=== PATIENT | male | born 1965 | race Caucasian/White ===

== ENCOUNTER 2018-07-18 15:12 | Emergency (ER) | payer OTHER ==
[~2018-07-18] VITALS: Ht 177.8 cm; Wt 99.8 kg
--- NOTE | 2018-07-18 15:26 | PHYS DOC ---
Adult General Chief Complaint Chief Complaint: SYNCOPE HPI HPI Patient is a 52 year old male with no significant medical history who presents today complaining of a syncope episode as well as nausea vomiting and diarrhea. Patient states prior to coming to the ED he was at the [employer] for the last three hours. He states he got clammy, he states he felt dizzy then passed out in his seat. He also states for the last 1 week he has had intermittent episodes of nausea vomiting and diarrhea. He is from [place]. They drove from [place] to [place] but stopped at a couple places and spent the night. Patient denies any chest pain or shortness of breath. He states he feels better since he got to the ED. Review of Systems Review of Systems Constitutional: Denies fever or chills [] Eyes: Denies change in visual acuity, redness, or eye pain [] HENT: Denies nasal congestion or sore throat [] Respiratory: Denies cough or shortness of breath [] Cardiovascular: No additional information not addressed in HPI [] GI: Reports nausea vomiting and diarrhea, denies abdominal pain, bloody stools : Denies dysuria or hematuria [] Musculoskeletal: Denies back pain or joint pain [] Integument: Denies rash or skin lesions [] Neurologic: Reports syncope episode, dizziness, denies headache, focal weakness or sensory changes [] All other systems were reviewed and found to be within normal limits, except as documented in this note. Current Medications Current Medications Current Medications Medications (Trade) Dose Ordered Sig/Enrrique Start Time Stop Time Status Last Admin Dose Admin Dicyclomine HCl (Bentyl) 20 mg 1X ONCE 07/18/18 15:30 07/18/18 15:31 DC 07/18/18 15:50 20 MG Info (CONTRAST GIVEN -- Rx MONITORING) 1 each PRN DAILY PRN 07/18/18 16:15 07/20/18 16:14 Iohexol (Omnipaque 300 Mg/ml) 75 ml 1X ONCE 07/18/18 16:15 07/18/18 16:16 DC 07/18/18 16:15 75 ML Ondansetron HCl (Zofran) 4 mg 1X ONCE 07/18/18 15:30 07/18/18 15:31 DC 07/18/18 15:30 4 MG Pantoprazole Sodium (PROTONIX VIAL for IV PUSH) 40 mg 1X ONCE 07/18/18 15:30 07/18/18 15:31 DC 07/18/18 15:47 40 MG Sodium Chloride 1,000 ml @ 1,000 mls/hr 1X ONCE 07/18/18 15:30 07/18/18 16:29 DC 07/18/18 15:46 1,000 MLS/HR Allergies Allergies Allergies Coded Allergies Type Severity Reaction Last Updated Verified No Known Drug Allergies 07/18/18 No Physical Exam Physical Exam Constitutional: Well developed, well nourished, no acute distress, non-toxic appearance. [] HENT: Normocephalic, atraumatic, bilateral external ears normal, oropharynx moist, no oral exudates, nose normal. [] Eyes: PERRLA, EOMI, conjunctiva normal, no discharge. [] Neck: Normal range of motion, no tenderness, supple, no stridor. [] Cardiovascular:Heart rate regular rhythm, no murmur [] Lungs & Thorax: Bilateral breath sounds clear to auscultation [] Abdomen: Bowel sounds normal, soft, no tenderness, no masses, no pulsatile masses. [] Skin: Warm, dry, no erythema, no rash. [] Back: No tenderness, no CVA tenderness. [] Extremities: No tenderness, no cyanosis, no clubbing, ROM intact, no edema. [] Neurologic: Alert and oriented X 3, normal motor function, normal sensory function, no focal deficits noted. Cranial nerves II through XII intact Psychologic: Affect normal, judgement normal, mood normal. [] Current Patient Data Vital Signs Vital Signs Date Time Temp Pulse Resp B/P (MAP) Pulse Ox O2 Delivery O2 Flow Rate FiO2 07/18/18 15:13 98.2 80 16 141/77 (98) 97 Room Air 98.2 Lab Values Laboratory Tests Test 07/18/18 15:20 White Blood Count 12.0 x10^3/uL (4.0-11.0) H Red Blood Count 5.01 x10^6/uL (4.30-5.70) Hemoglobin 15.5 g/dL (13.0-17.5) Hematocrit 45.0 % (39.0-53.0) Mean Corpuscular Volume 90 fL (79-100) Mean Corpuscular Hemoglobin 31 pg (25-35) Mean Corpuscular Hemoglobin Concent 35 g/dL (31-37) Red Cell Distribution Width 13.1 % (11.5-14.5) Platelet Count 203 x10^3/uL (140-400) Neutrophils (%) (Auto) 79 % (31-73) H Lymphocytes (%) (Auto) 13 % (24-48) L Monocytes (%) (Auto) 7 % (0-9) Eosinophils (%) (Auto) 1 % (0-3) Basophils (%) (Auto) 1 % (0-3) Neutrophils # (Auto) 9.4 x10^3uL (1.8-7.7) H Lymphocytes # (Auto) 1.5 x10^3/uL (1.0-4.8) Monocytes # (Auto) 0.8 x10^3/uL (0.0-1.1) Eosinophils # (Auto) 0.1 x10^3/uL (0.0-0.7) Basophils # (Auto) 0.1 x10^3/uL (0.0-0.2) D-Dimer (Abby) 1.14 ug/mlFEU (0.00-0.50) H Sodium Level 137 mmol/L (136-145) Potassium Level 4.0 mmol/L (3.5-5.1) Chloride Level 101 mmol/L (98-107) Carbon Dioxide Level 27 mmol/L (21-32) Anion Gap 9 (6-14) Blood Urea Nitrogen 15 mg/dL (8-26) Creatinine 1.0 mg/dL (0.7-1.3) Estimated GFR (Cockcroft-Gault) 77.9 BUN/Creatinine Ratio 15 (6-20) Glucose Level 120 mg/dL (70-99) H Calcium Level 9.1 mg/dL (8.5-10.1) Magnesium Level 1.7 mg/dL (1.8-2.4) L Total Bilirubin 0.5 mg/dL (0.2-1.0) Aspartate Amino Transferase (AST) 29 U/L (15-37) Alanine Aminotransferase (ALT) 59 U/L (16-63) Alkaline Phosphatase 97 U/L (46-116) Creatine Kinase 73 U/L (39-308) Troponin I Quantitative < 0.017 ng/mL (0.000-0.055) WG-Gao-A-Type Natriuretic Peptide 13 pg/mL (0-124) Total Protein 7.8 g/dL (6.4-8.2) Albumin 3.8 g/dL (3.4-5.0) Albumin/Globulin Ratio 1.0 (1.0-1.7) Lipase 113 U/L (73-393) Ethyl Alcohol Level < 10 mg/dL (0-10) Laboratory Tests 07/18/18 15:20 Laboratory Tests 07/18/18 15:20 EKG EKG :[address] Scott sinus rhythm heart rate 75 no STEMI[] Radiology/Procedures Radiology/Procedures []PATIENT: ANA BUNDYACCOUNT: [id number]#: [id number] : 1965 LOCATION: ER AGE: 52 SEX: M EXAM STATUS: PRE ER ORD. PHYSICIAN: ABILIO BOWEN APRN REASON: syncope PROCEDURE: PORTABLE CHEST 1V Chest AP portable 07/18/2018. Reason for exam: Syncope. There are no available comparison studies. No acute infiltrate is seen. There may be a small left-sided effusion. There is evidence of previous granulomatous infection in the chest. Heart size is normal. IMPRESSION: Small left-sided effusion. Electronically signed by: Little Ross Jr., MD (07/18/2018 3:42 PM) [facility] [place] DICTATED and SIGNED BY: LITTLE ROSS Jr, MD DATE: 07/18/18 1542 PROCEDURE: CT ABD PELV W/ IV CONTRST ONLY CTA chest with contrast, CT abdomen and pelvis with contrast 07/18/2018 CLINICAL INDICATION: Nausea and diarrhea, elevated d-dimer, syncopal episode. COMPARISON: None. TECHNIQUE: Multiple CTA images of the chest and portal venous CT images of the abdomen and pelvis were obtained following the intravenous administration of 75 mL Omnipaque 300. MIPS were obtained of the chest. *One or more of the following individualized dose reduction techniques were utilized for this examination: 1. Automated exposure control. 2. Adjustment of the mA and/or kV according to patient size. 3. Use of iterative reconstruction technique. FINDINGS: CTA CHEST: There is eccentric low-attenuation in the main pulmonary artery extending into the left pulmonary artery which is felt to represent motion artifact. Otherwise, no central or major segmental pulmonary arterial filling defect. The thoracic aorta is normal in caliber. Heart size is normal without significant pericardial effusion. No axillary lymphadenopathy. Mild mediastinal and bilateral hilar lymphadenopathy. Compensator lower right paratracheal adenopathy measures 1.1 cm short axis series 3/image 50. Compensator right hilar lymphadenopathy measures 1.3 cm short axis series 3/image 64. The central airways are patent. There is a trace left pleural effusion. There is a 0.4 cm noncalcified pulmonary nodule in the anterior right middle lobe series 3/image 86, 0.4 cm noncalcified pulmonary nodule in the lateral right upper lobe series 3/image 37, 0.4 cm noncalcified pulmonary nodule in the anterior right upper lobe series 3/image 50, 0.3 cm noncalcified pulmonary nodule in the lateral left upper lobe series 3/image 67. There are few scattered calcified granulomas in the left lung. Minimal probable left basilar atelectasis. Abdomen and pelvis: Liver, spleen, gallbladder, adrenal glands, pancreas and kidneys unremarkable. No hydronephrosis. Abdominal aorta normal in caliber. Major portal veins are patent. A few mildly prominent gastrohepatic and periportal lymph nodes without pathologic enlargement by CT size criteria. Small and large bowel loops are normal in caliber without obstruction. Appendix is not visualized and may be absent. Mildly distended unopacified urinary bladder, prostate, and seminal vesicles are unremarkable. No iliac or inguinal lymphadenopathy. No abdominal free fluid. No pneumoperitoneum. There are no destructive osseous lesions. CTA CHEST: 1. No CT evidence of pulmonary embolism. 2. Several subcentimeter bilateral noncalcified pulmonary nodules, indeterminate and pulmonary metastatic disease or primary lung malignancy not excluded. 3. Mild bilateral hilar lymphadenopathy, indeterminate between reactive and roque metastatic disease. Electronically signed by: Yisel Beaulieu MD (07/18/2018 5:13 PM) [facility] DICTATED and SIGNED BY: YISEL BEAULIEU MD DATE: 07/18/181656 Course & Med Decision Making Course & Med Decision Making Pertinent Labs and Imaging studies reviewed. (See chart for details) This is a 52-year-old male patient presenting to the ED today with a syncope episode as well as nausea vomiting and diarrhea. Patient was at the [employer] when he got dizzy and passed out. Prior to this he was feeling clammy. He also states he has had nausea vomiting and diarrhea with no abdominal pain for one week intermittently. Vitals on arrival to the ED temperature 98.0 heart rate 80 respirations 16 on room air blood pressure 141/77 O2 sats 97% on room air. CBC with a WBC of 12.0, CMP with no acute findings. Troponin is normal, CK is normal, EKG is normal, CT of the head is negative for any acute findings, chest x-ray was noted for small left pleural effusion. D-dimer was 1.14, CTA chest was obtained as well as CT of the abdomen for nausea vomiting and diarrhea for one week. CTA CHEST: 1. No CT evidence of pulmonary embolism. 2. Several subcentimeter bilateral noncalcified pulmonary nodules, indeterminate and pulmonary metastatic disease or primary lung malignancy not excluded. 3. Mild bilateral hilar lymphadenopathy, indeterminate between reactive and roque metastatic disease. Above results were discussed with patient and family. Patient comes from [place], I requested they contact their primary care doctor and start following up with the CT findings. Patient is feeling better in the ED. Was discharged to home. Dragon Disclaimer Dragon Disclaimer This electronic medical record was generated, in whole or in part, using a voice recognition dictation system. Departure Departure Impression: Primary Impression: Syncope Additional Impression: Vomiting and diarrhea Disposition: 01 HOME, SELF-CARE Condition: STABLE Patient Instructions: Diarrhea, Nausea and Vomiting, [id number], Syncope Additional Instructions: You were evaluated in the emergency room for syncope, diarrhea and vomiting. As discussed please contact your primary care doctor as soon as you get home and have him or her follow-up with the CT results. Please come back to the emergency room at any point symptoms worsen. Try to push fluids and hydrate yourself. Scripts Ondansetron (ZOFRAN ODT) 4 Mg Tab.rapdis 1 TAB SL Q8HRS, #15 TAB Prov: ABILIO BOWEN APRN 07/18/18 Problem Qualifiers Primary Impression: Syncope Syncope type: unspecified Qualified Codes: R55 - Syncope and collapse REMIABILIO MCCORMACK ROBERT Jul 18, 2018 15:26
[2018-07-18] MEDS ORDERED: ONDANSETRON PF 4 MG/2 ML VIAL. IV ONE (15:30)
[2018-07-18] MEDS ORDERED: PANTOPRAZOLE IV PUSH 40 MG VIAL. IVP ONE (15:30)
[2018-07-18] MEDS ORDERED: IV NORMAL SALINE 1000ML BAG 1,000 ML IV ONE (15:30)
[2018-07-18] MEDS ORDERED: DICYCLOMINE HCL 10 MG CAPSULE PO ONE (15:30)
[2018-07-18 15:38] LABS: BASO # 0.1 x10^3/uL (0.0-0.2); BASO % 1 % (0-3); EOS # 0.1 x10^3/uL (0.0-0.7); EOS % 1 % (0-3); HEMOGLOBIN 15.5 g/dL (13.0-17.5); LYMPH # 1.5 x10^3/uL (1.0-4.8); LYMPH % 13 % (24-48); MEAN CORPUSCULAR HEMOGLOBIN 31 pg (25-35); MEAN CORPUSCULAR HGB CONC 35 g/dL (31-37); MEAN CORPUSCULAR VOLUME 90 fL (79-100); MONO # 0.8 x10^3/uL (0.0-1.1); MONO % 7 % (0-9); NEUT # 9.4 x10^3uL (1.8-7.7); NEUT % 79 % (31-73); PLATELET COUNT 203 x10^3/uL (140-400); RED BLOOD COUNT 5.01 x10^6/uL (4.30-5.70); RED CELL DISTRIBUTION WIDTH 13.1 % (11.5-14.5)
--- NOTE | 2018-07-18 15:46 | RAD ---
Chest AP portable 07/18/2018. Reason for exam: Syncope. There are no available comparison studies. No acute infiltrate is seen. There may be a small left-sided effusion. There is evidence of previous granulomatous infection in the chest. Heart size is normal. IMPRESSION: Small left-sided effusion. Electronically signed by: Anthony Ross Jr., MD (07/18/2018 3:42 PM) [facility] [place]
[2018-07-18 15:47] LABS: CALCIUM 9.1 mg/dL (8.5-10.1); GFR 77.9
--- NOTE | 2018-07-18 15:48 | RAD ---
CT HEAD WO CONTRAST dated 07/18/2018 3:20 PM Indication:SYNCOPAL EPISODE, NO PRIORS OR HX Comparison: No comparison is available. Technique: Noncontrast images were performed. One or more of the following individualized dose reduction techniques were utilized for this examination: 1. Automated exposure control 2. Adjustment of the mA and/or kV according to patient size 3. Use of iterative reconstruction technique Findings: There is no apparent intracranial hemorrhage or abnormal extra-axial fluid collection. No focal area of abnormal density is seen in the brain. The ventricles and basilar cisterns are normally positioned. Bone windows reveal no apparent fracture of the skull or abnormal sinus or mastoid opacification. IMPRESSION: No acute abnormality. Electronically signed by: Anthony Ross Jr., MD (07/18/2018 3:44 PM) [facility] [place]
[2018-07-18 15:54] LABS: ALBUMIN 3.8 g/dL (3.4-5.0); MAGNESIUM 1.7 mg/dL (1.8-2.4); TOTAL BILIRUBIN 0.5 mg/dL (0.2-1.0); TOTAL PROTEIN 7.8 g/dL (6.4-8.2)
[2018-07-18 16:13] VITALS: BP 131/66
[2018-07-18] MEDS ORDERED: CONTRAST GIVEN. MC PRN (16:15)
[2018-07-18] MEDS ORDERED: IOHEXOL 300 MG/ML 100ML VIAL. IV ONE (16:15)
--- NOTE | 2018-07-18 17:17 | RAD ---
CTA chest with contrast, CT abdomen and pelvis with contrast 07/18/2018 CLINICAL INDICATION: Nausea and diarrhea, elevated d-dimer, syncopal episode. COMPARISON: None. TECHNIQUE: Multiple CTA images of the chest and portal venous CT images of the abdomen and pelvis were obtained following the intravenous administration of 75 mL Omnipaque 300. MIPS were obtained of the chest. *One or more of the following individualized dose reduction techniques were utilized for this examination: 1. Automated exposure control. 2. Adjustment of the mA and/or kV according to patient size. 3. Use of iterative reconstruction technique. FINDINGS: CTA CHEST: There is eccentric low-attenuation in the main pulmonary artery extending into the left pulmonary artery which is felt to represent motion artifact. Otherwise, no central or major segmental pulmonary arterial filling defect. The thoracic aorta is normal in caliber. Heart size is normal without significant pericardial effusion. No axillary lymphadenopathy. Mild mediastinal and bilateral hilar lymphadenopathy. 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 Filtration Operator right hilar lymphadenopathy measures 1.3 cm short axis series 3/image 64. The central airways are patent. There is a trace left pleural effusion. There is a 0.4 cm noncalcified pulmonary nodule in the anterior right middle lobe series 3/image 86, 0.4 cm noncalcified pulmonary nodule in the lateral right upper lobe series 3/image 37, 0.4 cm noncalcified pulmonary nodule in the anterior right upper lobe series 3/image 50, 0.3 cm noncalcified pulmonary nodule in the lateral left upper lobe series 3/image 67. There are few scattered calcified granulomas in the left lung. Minimal probable left basilar atelectasis. Abdomen and pelvis: Liver, spleen, gallbladder, adrenal glands, pancreas and kidneys unremarkable. No hydronephrosis. Abdominal aorta normal in caliber. Major portal veins are patent. A few mildly prominent gastrohepatic and periportal lymph nodes without pathologic enlargement by CT size criteria. Small and large bowel loops are normal in caliber without obstruction. Appendix is not visualized and may be absent. Mildly distended unopacified urinary bladder, prostate, and seminal vesicles are unremarkable. No iliac or inguinal lymphadenopathy. No abdominal free fluid. No pneumoperitoneum. There are no destructive osseous lesions. CTA CHEST: 1. No CT evidence of pulmonary embolism. 2. Several subcentimeter bilateral noncalcified pulmonary nodules, indeterminate and pulmonary metastatic disease or primary lung malignancy not excluded. 3. Mild bilateral hilar lymphadenopathy, indeterminate between reactive and roque metastatic disease. Electronically signed by: Apolinar Beaulieu MD (07/18/2018 5:13 PM) [facility]
[2018-07-18] MEDS ORDERED: ONDA4TAB10 SL (17:45)
--- NOTE | 2018-07-19 08:05 | EKG ---
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
== END 2018-07-18 17:59 | disposition home or self-care (01) ==
LOC: ER 15:12
DX: R55 Syncope and collapse (principal); R11.2 Nausea with vomiting, unspecified; R19.7 Diarrhea, unspecified
CPT/HCPCS: 36415; 70450; 71045; 71275; 74177; 80053; 82550; 83690; 83735; 83880; 84484; 85025; 85379; 93005; 96361; 96374; 96375; 99285; C9113; G0480; J2405; J7030; Q9967